=== PATIENT | male | born 1980 ===

== ENCOUNTER 2023-09-20 21:49 | Emergency (ER) | payer SELFPAY ==
--- NOTE | 2023-09-20 22:04 | PC.NURSE ---
Patient came to triage desk and states he feels much better. States he has anxiety and believes his medication is helping now. States he almost fell asleep in the waiting room and would like to go home at this time. Patient instructed to come back to ED if symptoms worsen and to follow up with primary doctor at the [facility].
== END 2023-09-20 22:51 | disposition left against medical advice (07) ==
LOC: ANHED 22:19
DX: Z53.21 Procedure and treatment not carried out due to patient leaving prior to being seen by health care provider (principal)
CPT/HCPCS: 99199